=== PATIENT | female | born 2000 | race Caucasian/White ===

== ENCOUNTER 2018-11-21 17:34 | Emergency (ER) | payer OTHER ==
[~2018-11-21] VITALS: Ht 170.2 cm; Wt 142.9 kg
[2018-11-21] MEDS ORDERED: BIRTH CONTROL (17:53)
[2018-11-21] MEDS ORDERED: MULTIVITAMINS PO (17:53)
[2018-11-21 18:20] LABS: ABSOLUTE LYMPHOCYTES 1.8 thou/uL (0.8-5.3); ABSOLUTE MONOCYTES 0.6 thou/uL (0.0-1.2); ABSOLUTE NEUTROPHILS 7.7 thou/uL (1.6-8.1); BASOPHILS 0.5 %; EOSINOPHILS 0.3 %; HEMATOCRIT 38.6 % (37.0-47.0); HEMOGLOBIN 13.2 gm/dL (12.0-15.0); LYMPHOCYTES 17.6 %; MCH 27.9 pg (26.0-34.0); MCHC 34.2 g/dL (28.0-37.0); MCV 81.7 fL (80.0-100.0); MONOCYTES 6.2 %; MPV 8.8 fl. (7.2-11.1); NUCLEATED RBCS 0 /100WBC; PLATELET COUNT* 249 thou/uL (150-400); POLYS 75.4 %; RBC 4.72 mil/uL (4.20-5.00); RDW-CV 15.1 % (10.5-14.5); WBC 10.2 thou/uL (4.0-11.0)
[2018-11-21 18:24] LABS: CALCIUM 8.5 mg/dL (8.5-10.1); CREATININE 0.6 mg/dL (0.6-1.3)
[2018-11-21 18:28] LABS: ALBUMIN 3.3 g/dL (3.4-5.0); TOTAL BILIRUBIN 0.4 mg/dL (<0.1-1.0); TOTAL PROTEIN 8.4 g/dL (6.4-8.2)
[2018-11-21] MEDS ORDERED: NORCO 5-325 TA1 EAC1 PO (20:33)
[2018-11-21] MEDS ORDERED: CLOBETASOL PROP15 GM TOP (20:33)
[2018-11-21] MEDS ORDERED: NABUMETONE 750750 M1 PO (20:33)
[2018-11-21 21:01] LABS: URINE BLOOD 3+ (Negative); URINE CLARITY SL CLOUDY; URINE COLOR DARK YELLOW; URINE GLUCOSE-RANDOM NEGATIVE (Negative); URINE KETONES NEGATIVE (Negative); URINE NITRITE-REFLEX NEGATIVE (Negative); URINE PROTEIN 1+ (Negative); URINE SPECIFIC GRAVITY 1.025 (1.005-1.030); URINE UROBILINOGEN 0.2 E.U./dl (0.2-1.0)
[2018-11-21 21:03] LABS: ICTOTEST (BILI CONFIRMATORY) Negative (Negative); URINE BILIRUBIN 1+ (Negative); URINE LEUKOCYTES-REFLEX 2+ (Negative)
[2018-11-21 21:04] LABS: SQUAMOUS 0-3 Few /LPF (0-3)
[2018-11-21] MEDS ORDERED: BACTRIM DS TAB1 EACH PO (21:07)
[2018-11-21 21:08] LABS: CASTS None Seen /LPF (None Seen); CRYSTALS None Seen /LPF (None Seen); MUCUS 0-3 Light strn/LPF (None Seen); URINE RBC >20 Many /HPF (0-2)
[2018-11-21 22:04] VITALS: BP 117/63
== END 2018-11-21 22:05 | disposition home or self-care (01) ==
LOC: M.ERS 17:34
PROVIDERS: Nurse Practitioner Family
DX: L20.9 Atopic dermatitis, unspecified (principal); T50.905A Adverse effect of unspecified drugs, medicaments and biological substances, initial encounter; N39.0 Urinary tract infection, site not specified; N90.89 Other specified noninflammatory disorders of vulva and perineum; N93.9 Abnormal uterine and vaginal bleeding, unspecified; Y92.89 Other specified places as the place of occurrence of the external cause

== ENCOUNTER 2019-09-14 11:59 | Emergency (ER) | payer OTHER ==
[~2019-09-14] VITALS: Ht 170.2 cm; Wt 117.9 kg
[~2019-09-14 11:59] MED LIST: BACTRIM DS TAB1 EACH PO; BIRTH CONTROL; CLOBETASOL PROP15 GM TOP; MULTIVITAMINS PO; NABUMETONE 750750 M1 PO; NORCO 5-325 TA1 EAC1 PO
[2019-09-14] MEDS ORDERED: AUGMENTIN 875-1 EACH PO (12:57)
[2019-09-14 13:22] VITALS: BP 161/91
== END 2019-09-14 13:23 | disposition home or self-care (01) ==
LOC: M.ERS 11:59
DX: J03.00 Acute streptococcal tonsillitis, unspecified (principal); F17.210 Nicotine dependence, cigarettes, uncomplicated

== ENCOUNTER 2020-08-04 15:57 | Emergency (ER) | payer OTHER ==
[~2020-08-04] VITALS: Ht 170.2 cm; Wt 127.0 kg
[~2020-08-04 15:57] MED LIST changes: +AUGMENTIN 875-1 EACH PO
[2020-08-04] MEDS ORDERED: AUGMENTIN 875-1 EACH PO (17:19)
[2020-08-04] MEDS ORDERED: APAP W/CODEINE1 TA2 PO (17:19)
[2020-08-04 17:42] VITALS: BP 149/93
== END 2020-08-04 17:43 | disposition home or self-care (01) ==
LOC: M.ERS 15:57
DX: J03.00 Acute streptococcal tonsillitis, unspecified (principal)

== ENCOUNTER 2020-12-10 19:18 | Emergency (ER) | payer OTHER ==
[~2020-12-10] VITALS: Ht 170.2 cm; Wt 113.4 kg
[~2020-12-10 19:18] MED LIST changes: +APAP W/CODEINE1 TA2 PO
[2020-12-10] MEDS ORDERED: PHENERGAN 25 MG25 M1 PO (22:25)
[2020-12-10] MEDS ORDERED: IBUPROFEN 800800 M1 PO (22:25)
[2020-12-10 22:40] VITALS: BP 130/86
== END 2020-12-10 22:40 | disposition home or self-care (01) ==
LOC: M.ERS 19:18
DX: S06.0X0A Concussion without loss of consciousness, initial encounter (principal); R11.10 Vomiting, unspecified; Y04.2XXA Assault by strike against or bumped into by another person, initial encounter; Y93.89 Activity, other specified; Y92.89 Other specified places as the place of occurrence of the external cause; Y99.8 Other external cause status

== ENCOUNTER 2021-02-12 08:27 | Emergency (ER) | payer OTHER ==
[~2021-02-12] VITALS: Ht 170.2 cm; Wt 127.0 kg
[~2021-02-12 08:27] MED LIST changes: +IBUPROFEN 800800 M1 PO; +PHENERGAN 25 MG25 M1 PO
[2021-02-12 09:19] LABS: ABSOLUTE LYMPHOCYTES 0.9 thou/uL (0.8-5.3); EOSINOPHILS 0.3 %; MPV 8.8 fl. (7.2-11.1)
[2021-02-12 09:21] LABS: ABSOLUTE MONOCYTES 1.1 thou/uL (0.0-1.2); ABSOLUTE NEUTROPHILS 3.7 thou/uL (1.6-8.1); BASOPHILS 0.5 %; HEMATOCRIT 41.8 % (37.0-47.0); HEMOGLOBIN 13.8 gm/dL (12.0-15.0); MCH 27.6 pg (26.0-34.0); MCV 83.7 fL (80.0-100.0); MONOCYTES 19.1 %; NUCLEATED RBCS 0 /100WBC; PLATELET COUNT* 219 thou/uL (150-400); POLYS 64.1 %; RDW-CV 14.3 % (10.5-14.5); WBC 5.8 thou/uL (4.0-11.0)
[2021-02-12 09:27] LABS: CALCIUM 8.7 mg/dL (8.5-10.1); CREATININE 0.9 mg/dL (0.6-1.3); POTASSIUM 3.9 mmol/L (3.5-5.1)
[2021-02-12 09:31] LABS: ALBUMIN 3.7 g/dL (3.4-5.0); TOTAL BILIRUBIN 0.9 mg/dL (<0.1-1.0)
[2021-02-12 10:16] LABS: URINE BILIRUBIN NEGATIVE (Negative); URINE BLOOD 3+ (Negative); URINE CLARITY CLEAR; URINE COLOR YELLOW; URINE GLUCOSE-RANDOM NEGATIVE (Negative); URINE KETONES TRACE (Negative); URINE LEUKOCYTES-REFLEX NEGATIVE (Negative); URINE NITRITE-REFLEX NEGATIVE (Negative); URINE PROTEIN 2+ (Negative); URINE SPECIFIC GRAVITY 1.025 (1.005-1.030); URINE UROBILINOGEN 0.2 E.U./dl (0.2-1.0)
[2021-02-12 10:36] LABS: SQUAMOUS 4-10 Moderate /LPF (0-3); URINE WBC-REFLEX 0-5 Rare /HPF (0-5)
[2021-02-12 10:37] LABS: BACTERIA-REFLEX None Seen /HPF (None Seen); CASTS None Seen /LPF (None Seen); CRYSTALS None Seen /LPF (None Seen); MUCUS 0-3 Light strn/LPF (None Seen)
[2021-02-12] MEDS ORDERED: HYDROCODON-ACE1 EAC7 PO (11:35)
[2021-02-12] MEDS ORDERED: ZOFRAN ODT4 MG DISSOLVE (11:35)
[2021-02-12] MEDS ORDERED: IBUPROFEN 800800 M1 PO (11:35)
[2021-02-12 11:45] VITALS: BP 117/69
== END 2021-02-12 11:45 | disposition home or self-care (01) ==
LOC: M.ERS 08:27
PROVIDERS: Emergency Medicine Emergency Medical Services
DX: N20.0 Calculus of kidney (principal)

== ENCOUNTER 2021-03-18 11:22 | Emergency (ER) | payer OTHER ==
[~2021-03-18] VITALS: Ht 170.2 cm; Wt 127.0 kg
[~2021-03-18 11:22] MED LIST changes: +HYDROCODON-ACE1 EAC7 PO; +ZOFRAN ODT4 MG DISSOLVE
[2021-03-18] MEDS ORDERED: AMOXICILLIN 50500 M1 PO (12:24)
[2021-03-18 12:30] VITALS: BP 134/54
== END 2021-03-18 12:31 | disposition home or self-care (01) ==
LOC: M.ERS 11:22
DX: J02.9 Acute pharyngitis, unspecified (principal); R59.0 Localized enlarged lymph nodes

== ENCOUNTER 2021-04-03 19:39 | Emergency (ER) | payer OTHER ==
[~2021-04-03] VITALS: Ht 170.2 cm; Wt 127.0 kg
[~2021-04-03 19:39] MED LIST changes: +AMOXICILLIN 50500 M1 PO
[2021-04-03 20:16] LABS: URINE BILIRUBIN NEGATIVE (Negative); URINE BLOOD TRACE (Negative); URINE CLARITY CLEAR; URINE COLOR YELLOW; URINE GLUCOSE-RANDOM NEGATIVE (Negative); URINE KETONES NEGATIVE (Negative); URINE LEUKOCYTES NEGATIVE (Negative); URINE NITRITE NEGATIVE (Negative); URINE PROTEIN NEGATIVE (Negative); URINE SPECIFIC GRAVITY 1.025 (1.005-1.030); URINE UROBILINOGEN 0.2 E.U./dl (0.2-1.0)
[2021-04-03] MEDS ORDERED: ZOFRAN ODT4 MG PO (20:41)
[2021-04-03 21:05] LABS: INFLUENZA A ANTIGEN Negative (Negative); INFLUENZA B ANTIGEN Negative (Negative)
[2021-04-03 21:12] VITALS: BP 150/82
== END 2021-04-03 21:12 | disposition home or self-care (01) ==
LOC: M.ERS 19:39
PROVIDERS: Emergency Medicine; Physician Assistant
DX: R11.2 Nausea with vomiting, unspecified (principal); R19.7 Diarrhea, unspecified; J06.9 Acute upper respiratory infection, unspecified; R10.9 Unspecified abdominal pain; Z79.2 Long term (current) use of antibiotics

== ENCOUNTER 2021-04-06 17:41 | Emergency (ER) | payer OTHER ==
[~2021-04-06] VITALS: Ht 170.2 cm; Wt 127.0 kg
[~2021-04-06 17:41] MED LIST changes: +ZOFRAN ODT4 MG PO
[2021-04-06 18:26] VITALS: BP 123/86
== END 2021-04-06 22:00 | disposition left against medical advice (07) ==
LOC: M.ERS 17:41
DX: R11.2 Nausea with vomiting, unspecified (principal); R10.9 Unspecified abdominal pain; R51.9 Headache, unspecified; M54.50 Low back pain, unspecified; R42 Dizziness and giddiness; Z53.21 Procedure and treatment not carried out due to patient leaving prior to being seen by health care provider; W00.0XXA Fall on same level due to ice and snow, initial encounter; Y93.89 Activity, other specified; Y92.89 Other specified places as the place of occurrence of the external cause; Y99.8 Other external cause status